=== PATIENT | female | born 1995 | race Caucasian/White ===

== ENCOUNTER 2016-07-29 18:20 | Inpatient (IN) | payer OTHER ==
[~2016-07-29] VITALS: Ht 157.5 cm; Wt 63.5 kg
[~2016-07-29 18:20] MED LIST: IBUPROFEN800 MG PO; MOTRIN600 MG PO; PRENATAL TABLE1 EAC3 PO; ZOFRAN ODT4 MG PO
[2016-07-29 19:10] VITALS: BP 117/65
[2016-07-29 20:12] VITALS: BP 117/77
[2016-07-29 21:23] LABS: AMPHETAMINES QUANT VALUE 0 NG/ML; BARBITUATES QUANT VALUE 0 NG/ML; BENZODIAZEPINES QUANT VALUE 0 NG/ML; BENZODIAZEPINES, URINE SCREEN Negative (200 ng/mL); MARIJUANA QUANT VALUE 0 NG/ML; OPIATES QUANTITATIVE VALUE 0 NG/ML; PHENCYCLIDINE QUANT VALUE 0 NG/ML
[2016-07-29 22:21] LABS: DRSB INTERNAL CONTROL PASS; PROBE CHECK PASS; SPECIMEN PROCESSING CONTROL PASS
[2016-07-29 23:17] LABS: HEMATOCRIT 35.6 % (36.0-46.0); MCH 31.6 PG (29.0-34.0); MCHC 34.6 G/DL (30.0-36.0); MCV 91.5 FL (83-99); MEAN PLAT.VOLUME 11.8 uM^3 (9.5-12.4); PLATELET COUNT 183 K/uL (156-360); RBC DIS.WIDTH-CV 12.5 % (11.8-14.6); RBC DIS.WIDTH-SD 40.9 % (39-53); RED BLOOD COUNT 3.89 M/uL (3.80-5.20); WHITE BLOOD COUNT 15.2 K/uL (4.1-10.2)
[2016-07-29 23:38] VITALS: BP 130/88
[2016-07-30] VITALS (9 sets, daily range): BP systolic 109–139; BP diastolic 55–84
[2016-07-31 07:03] LABS: EOSINOPHIL (%) 1.4 % (0-5); EOSINOPHIL COUNT 0.1 K/uL (0-0.3); HEMATOCRIT 39.7 % (36.0-46.0); IMMATURE GRANULOCYTE (%) 1.1 % (0.0-0.7); IMMATURE GRANULOCYTE COUNT 0.1 K/uL; LYMPHOCYTE COUNT 0.6 K/uL (1.0-2.8); MCH 31.1 PG (29.0-34.0); MCV 94.3 FL (83-99); MEAN PLAT.VOLUME 11.7 uM^3 (9.5-12.4); MONOCYTE (%) 5.4 % (3-12); MONOCYTE COUNT 0.5 K/uL (0-0.8); NEUTROPHIL (%) 86.3 % (45-76); NEUTROPHIL COUNT 8.5 K/uL (1.8-6.4); PLATELET COUNT 168 K/uL (156-360); RBC DIS.WIDTH-SD 44.5 % (39-53); RED BLOOD COUNT 4.21 M/uL (3.80-5.20)
[2016-07-31 07:12] LABS: WHITE BLOOD COUNT 9.9 K/uL (4.1-10.2)
[2016-07-31 07:25] VITALS: BP 119/65
[2016-07-31] MEDS ORDERED: IBUPROFEN800 MG PO (09:23)
[2016-07-31 15:02] VITALS: BP 130/76
== END 2016-07-31 17:30 | disposition home or self-care (01) | DRG 775 ==
LOC: LDRP-OP 18:20 → 2WEST 18:21 → LDRP-OP 08-30 16:43
PROVIDERS: Advanced Practice Midwife
PROC: 10E0XZZ Delivery of Products of Conception, External Approach (ICD-10-PCS; principal; 2016-07-30)
DX: O69.2XX0 Labor and delivery complicated by other cord entanglement, with compression, not applicable or unspecified (principal); Z3A.40 40 weeks gestation of pregnancy; Z37.0 Single live birth; O77.0 Labor and delivery complicated by meconium in amniotic fluid; F17.200 Nicotine dependence, unspecified, uncomplicated; O99.334 Smoking (tobacco) complicating childbirth; O32.6XX0 Maternal care for compound presentation, not applicable or unspecified
CPT/HCPCS: 80306 90; 82247; 82248; 82261 90; 82776 90; 84030 90; 84510 90; 85025; 85027; 87081; 87651 90; 87653; G0378; J1050